=== PATIENT | female | born 1975 ===

== ENCOUNTER 2024-10-06 15:50 | Day surgery (SDC) | payer BC ==
[2024-10-06] MEDS: IRON SUCROSE INJECTION 300 MG in SODIUM CHLORIDE 250 ML IVPB ONE (16:12)
[2024-10-06 17:23] VITALS: TEMP 97.5
[2024-10-06 18:32] VITALS: BP 122/78; PULSE 58; RESP 18
== END 2024-10-06 18:05 | disposition home or self-care (01) ==
LOC: JONCNONCHE 15:50
PROVIDERS: ATTEND Internal Medicine Hematology & Oncology
PROC: 3E033GC Introduction of Other Therapeutic Substance into Peripheral Vein, Percutaneous Approach (ICD-10-PCS; principal; 2024-10-06)
DX: D50.0 Iron deficiency anemia secondary to blood loss (chronic) (principal)
CPT/HCPCS: 96365; J1756